=== PATIENT | female | born 2000 | race Two or more races ===

== ENCOUNTER 2018-01-23 19:06 | Observation (INO) ==
--- NOTE | 2018-01-23 19:34 | ED ---
HPI General Chief Complaint: Fall Stated Complaint: fall/hit head/vomitting Time Seen by Provider: 01/23/18 19:21 History of Present Illness HPI Narrative: Patient is a 17-year-old female who presents with complaints of head injury status post fall from a skateboard onto asphalt. Patient states that injury occurred approximately 2 hrs [employer]. Patient was evaluated by EMS at the scene and cleared. Patient and her boyfriend were advised that if she were to experience nausea, vomiting, lethargy or visual disturbances to be evaluated the emergency room. She has had 2 episodes of vomiting prior to arrival. While in the emergency room and during my evaluation she has had another episode of vomiting. Boyfriend states that she is much more sleepy and lethargic than normal. Patient denies any visual disturbances. She denies any other injuries. She denies loss of consciousness after the incident. Related Data Home Medications Medication Instructions Recorded Confirmed methimazole 20 mg PO DAILY 01/23/18 01/23/18 Allergies Allergy/AdvReac Type Severity Reaction Status Date / Time No Known Allergies Allergy Uncoded 10/17/16 11:42 Review of Systems ROS: all other systems reviewed are negative [facility] Social History Social History Substance History: No History of Abuse Second Hand Smoke Exposure: No Smoking Status: Never smoker How Often Do You Have a Drink Containing Alcohol: Never Recent Travel in [facility] within the Last 8 Weeks: No Recent Out of Country Travel within the Last 8 Weeks: No Immunization History Tetanus Immunization: Unsure Exam Narrative Exam Narrative: GENERAL: drowsy but arousable and answering questions. SKIN: Focused skin assessment warm/dry. Abrasion on top/posteriors aspect of scalp, approx half dollar size in diameter. No laceration noted. HEAD: Atraumatic. Normocephalic.See skin assessment. No pike sign EYES: Pupils equal and round. No scleral icterus. No injection or drainage. ENT: No nasal bleeding or discharge. Mucous membranes pink and moist. No hemotympanum. NECK: Trachea midline. No JVD. CARDIOVASCULAR: Regular rate and rhythm. No murmur appreciated. RESPIRATORY: No accessory muscle use. Clear to auscultation. Breath sounds equal bilaterally. GASTROINTESTINAL: Abdomen soft, non-tender, nondistended. vomiting. MUSCULOSKELETAL: No obvious deformities. No clubbing. No cyanosis. No edema. NEUROLOGICAL: Drowsy but arouseable and answers questions. No obvious cranial nerve deficits. Motor grossly within normal limits. Normal speech. PSYCHIATRIC: Appropriate mood and affect; insight and judgment normal. Course Initial Documented Vital Signs Temperature 97.6 F 01/23/18 19:10 Pulse Rate 87 01/23/18 19:10 Respiratory Rate 16 01/23/18 19:10 Blood Pressure 126/64 01/23/18 19:10 Pulse Oximetry 100 01/23/18 19:10 Last Documented Vital Signs Temperature 97.6 F 01/23/18 19:10 Pulse Rate 84 01/23/18 21:45 Respiratory Rate 14 01/23/18 21:45 Blood Pressure 120/58 L 01/23/18 21:45 Pulse Oximetry 100 01/23/18 21:45 Clinical Decision Support [place] CT Head Injury GCS < 15 at 2 hours post-injury: Yes Suspected open or depreseed skull fracture: No Any sign of basilar skull fracture?: No 2 or more episodes of vomiting: Yes Age greater than or equal to 65 years: No Medical Decision Making MDM Narrative Medical decision making narrative: Patient is a 17-year-old female who presents after a skateboarding incident. She fell hitting her head approximately 2 hours prior to arrival. She was evaluated by EMS at the scene after her boyfriend called 911 and was cleared. She and the boyfriend were advised that if she were to experience any nausea, vomiting, visual disturbances, or dizziness to be seen in the emergency room. She had 2 episodes of vomiting propping her to come to the emergency room. Upon my evaluation she is vomiting again. Boyfriend reports that she is also more lethargic than normal. Upon exam she does have an abrasion on the top posterior aspect of her skull approximately half dollar in size. No laceration noted. She is lethargic on my exam but does awaken and answer questions appropriately. All extremities. No complaints of visual disturbances. Zofran, Compazine and Benadryl given for nausea and headache per Dr. Joseph's order. CT brain ordered and pending. Patient care assumed by me from Jade YANG at the end of her shift at 2100. I had already seen the patient and she appeared well and my concern was for concussion. CT scan of the head does show a occipital skull fracture with extension into the base of the skull. C-spine was added and is negative. Patient is feeling more comfortable after medications ordered as above. She has no bleeding no mass-effect and no contusion seen on the CAT scan. She is neurologically intact. Patient was discussed with Dr. Musa as well as Dr. Chavis and will patient will be admitted to the floor for neurosurgical consult. Medical Screen Exam Complete: Yes Emergency Medical Condition: Yes Differential Diagnosis Differential Diagnosis: skull fracture/intracranial bleed/concussion Lab Data Result diagrams: 01/23/18 22:00 01/23/18 22:00 POC Results POC Urine Results Negative Lab Results 01/23/18 01/23/18 Range/Units 22:00 22:00 WBC 14.5 H (4.0-11.0) th/mm3 RBC 4.63 (4.00-5.30) mil/mm3 Hgb 12.6 (11.6-15.3) gm/dL Hct 37.5 (35.0-46.0) % MCV 81.1 (80.0-100.0) fL MCH 27.2 (27.0-34.0) pg MCHC 33.5 (32.0-36.0) % RDW 13.2 (11.6-17.2) % Plt Count 251 (150-450) th/mm3 MPV 8.2 (7.0-11.0) fL Neut % (Auto) 90.6 H (16.0-70.0) % Lymph % (Auto) 4.6 L (9.0-44.0) % Appling % (Auto) 4.7 (0.0-8.0) % Eos % (Auto) 0.0 (0.0-4.0) % Baso % (Auto) 0.1 (0.0-2.0) % Neut # (Auto) 13.1 H (1.8-7.7) th/mm3 Lymph # (Auto) 0.7 L (1.0-4.8) th/mm3 App[place] # (Auto) 0.7 (0.0-0.9) th/mm3 Eos # (Auto) 0.0 (0.0-0.4) th/mm3 Baso # (Auto) 0.0 (0.0-0.2) th/mm3 WBC Differential . Differential Comment Auto diff final Sodium 136 (136-145) meq/L Potassium 3.6 (3.5-5.1) meq/L Chloride 105 (98-107) meq/L Carbon Dioxide 25.6 (21.0-32.0) meq/L Anion Gap 5 (5-15) meq/L BUN 10 (7-18) mg/dL Creatinine 0.68 (0.50-1.00) mg/dL Estimated GFR Greater than 89 (>89) mL/min Random Glucose 120 H (74-106) mg/dL Calcium 8.8 (8.5-10.1) mg/dL Total Bilirubin 0.4 (0.2-1.0) mg/dL AST 19 (16-38) U/L ALT 21 (9-42) U/L Alkaline Phosphatase 63 (45-117) U/L Total Protein 7.7 (6.4-8.2) g/dL Albumin 4.2 (3.4-5.0) g/dL Imaging Data Radiologist's impression: Head CT 01/23/18 19:27 CONCLUSION: 1. There is a nondisplaced fracture of the left occipital bone extending into left parietal bone with overlying scalp swelling. No acute intracranial hemorrhage, mass effect or shift. . Cervical Spine CT 01/23/18 21:42 CONCLUSION: 1. Cervical spine is intact. 2. There is a nondisplaced fracture of the left occipital bone. 3. Enlarged thyroid. Please correlate clinically and if felt indicated, with outpatient thyroid ultrasound. Chest X-Ray 01/23/18 21:43 CONCLUSION: No evidence of acute cardiopulmonary disease. Discharge Plan Discharge Disposition Patient Disposition: 01 Discharge Home Discharge Order Discharge Orders: ED Use Only Admit Order (Routine); Ordered 01/23/18 Ordered By: Dmitri Joseph Discharge Details Diagnosis: Concussion without loss of consciousness Physicians Team ED Provider: Dmitri Joseph ED Midlevel Provider: Jade Diaz Primary Care Provider: UNKNOWN, Rxs /Orders / Referrals /Forms Prescriptions: No Action methimazole 10 mg Tablet 20 mg PO DAILY RF: 0 Status ED Status: Admitted Patient
--- NOTE | 2018-01-23 20:05 | ED ---
HPI General Chief complaint: Fall Stated complaint: fall/hit head/vomitting Time Seen by Provider: 01/23/18 19:21 History of Present Illness HPI narrative: This note was to viola Hansen's note, please see her note from this date as well which i have also documented on. Related Data Home Medications Medication Instructions Recorded Confirmed methimazole 20 mg PO DAILY 01/23/18 01/23/18 Previous Rx's Medication Instructions Recorded sennosides-docusate sodium [Senna 1 tab PO BID #20 tab 01/24/18 Plus] Allergies Allergy/AdvReac Type Severity Reaction Status Date / Time No Known Allergies Allergy Uncoded 10/17/16 11:42 [facility] Social History Social History Substance History: No History of Abuse Second Hand Smoke Exposure: No Smoking Status: Never smoker How Often Do You Have a Drink Containing Alcohol: Never Recent Travel in [facility] within the Last 8 Weeks: No Recent Out of Country Travel within the Last 8 Weeks: No Immunization History Tetanus Immunization: Unsure Course Initial Documented Vital Signs Temperature 97.6 F 01/23/18 19:10 Pulse Rate 87 01/23/18 19:10 Respiratory Rate 16 01/23/18 19:10 Blood Pressure 126/64 01/23/18 19:10 Pulse Oximetry 100 01/23/18 19:10 Last Documented Vital Signs Temperature 99.2 F 01/24/18 12:57 Pulse Rate 100 H 01/24/18 12:57 Respiratory Rate 18 01/24/18 12:57 Blood Pressure 99/55 L 01/24/18 12:57 Pulse Oximetry 100 01/24/18 12:57 Medical Decision Making BERONICA Attestation BERONICA supervised visit: Yes MDM Narrative Medical Screen Exam Complete: Yes Emergency Medical Condition: Yes Lab Data Result diagrams: 01/24/18 10:16 01/23/18 22:00 POC Results POC Urine Results Negative Lab Results 01/23/18 01/23/18 01/24/18 Range/Units 22:00 22:00 10:16 WBC 14.5 H 11.0 (4.0-11.0) th/mm3 RBC 4.63 4.66 (4.00-5.30) mil/mm3 Hgb 12.6 12.8 (11.6-15.3) gm/dL Hct 37.5 38.8 (35.0-46.0) % MCV 81.1 83.3 (80.0-100.0) fL MCH 27.2 27.6 (27.0-34.0) pg MCHC 33.5 33.1 (32.0-36.0) % RDW 13.2 13.5 (11.6-17.2) % Plt Count 251 248 (150-450) th/mm3 MPV 8.2 8.3 (7.0-11.0) fL Neut % (Auto) 90.6 H (16.0-70.0) % Lymph % (Auto) 4.6 L (9.0-44.0) % Daniels % (Auto) 4.7 (0.0-8.0) % Eos % (Auto) 0.0 (0.0-4.0) % Baso % (Auto) 0.1 (0.0-2.0) % Neut # (Auto) 13.1 H (1.8-7.7) th/mm3 Lymph # (Auto) 0.7 L (1.0-4.8) th/mm3 Daniels # (Auto) 0.7 (0.0-0.9) th/mm3 Eos # (Auto) 0.0 (0.0-0.4) th/mm3 Baso # (Auto) 0.0 (0.0-0.2) th/mm3 WBC Differential . Differential Comment Auto diff final Sodium 136 (136-145) meq/L Potassium 3.6 (3.5-5.1) meq/L Chloride 105 (98-107) meq/L Carbon Dioxide 25.6 (21.0-32.0) meq/L Anion Gap 5 (5-15) meq/L BUN 10 (7-18) mg/dL Creatinine 0.68 (0.50-1.00) mg/dL Estimated GFR Greater than 89 (>89) mL/min Random Glucose 120 H (74-106) mg/dL Calcium 8.8 (8.5-10.1) mg/dL Total Bilirubin 0.4 (0.2-1.0) mg/dL AST 19 (16-38) U/L ALT 21 (9-42) U/L Alkaline Phosphatase 63 (45-117) U/L Total Protein 7.7 (6.4-8.2) g/dL Albumin 4.2 (3.4-5.0) g/dL Imaging Data Radiologist's impression: Head CT 01/23/18 19:27 CONCLUSION: 1. There is a nondisplaced fracture of the left occipital bone extending into left parietal bone with overlying scalp swelling. No acute intracranial hemorrhage, mass effect or shift. . Cervical Spine CT 01/23/18 21:42 CONCLUSION: 1. Cervical spine is intact. 2. There is a nondisplaced fracture of the left occipital bone. 3. Enlarged thyroid. Please correlate clinically and if felt indicated, with outpatient thyroid ultrasound. Chest X-Ray 01/23/18 21:43 CONCLUSION: No evidence of acute cardiopulmonary disease. Discharge Plan Discharge Disposition Patient Disposition: ED Admit(ED Internal Use Only) Discharge Condition Condition: Stable Discharge Order Discharge Orders: Discharge Order (Routine); Ordered 01/24/18 Ordered By: Vasile Collins ED Use Only Admit Order (Routine); Ordered 01/23/18 Ordered By: Dmitri Joseph Discharge Details Diagnosis: Concussion without loss of consciousness, Basal skull fracture Physicians Team ED Provider: Dmitri Joseph ED Midlevel Provider: Jade Diaz Primary Care Provider: UNKNOWN, Attending Provider: Ele Liriano Other Providers: Alexander Musa ; Jennifer Gaitan ; Kirby Jc ; Julio Mon ; [employer] ; Augusto Dorman ; Adelaida Guzmán ; Owen Herrera ; Hayley Gagnon ; Vasile Collins ; Ele Liriano ; Alvarez Dodson Status ED Status: Left Department Discharge Information Discharge Date/Time: 01/24/18 00:17
--- NOTE | 2018-01-23 21:30 | CT ---
EXAM DATE: 01/23/2018 9:22 PM EST AGE/SEX: 17 years / Female INDICATIONS: Trauma; head injury. Fell off back of skate board and hit head. Vomited twice. CLINICAL DATA: This is the patient's initial encounter. Patient reports that signs and symptoms have been present for 1 day and indicates a pain score of 10/10. MEDICAL/SURGICAL HISTORY: Hypothyroidism. None. RADIATION DOSE: 35.29 CTDI (mGy) COMPARISON: No prior exams available for comparison. TECHNIQUE: CT of the head without contrast. Using automated exposure control and adjustment of the mA and/or kV according to patient size, radiation dose was kept as low as reasonably achievable to ob tain optimal diagnostic quality images. DICOM format image data is available electronically for revi ew and comparison. FINDINGS: Cerebrum: The ventricles are normal for age. No evidence of midline shift, mass lesion, hemorrhage or acute infarction. No extraaxial fluid collections are seen. Posterior Fossa: The cerebellum and brainstem are intact. The 4th ventricle is midline. The cerebe llopontine angle is unremarkable. Extracranial: The visualized portion of the orbits is intact. Skull: There is a nondisplaced fracture of the left occipital bone. CONCLUSION: 1. There is a nondisplaced fracture of the left occipital bone extending into left parietal bone wit h overlying scalp swelling. No acute intracranial hemorrhage, mass effect or shift. . Electronically signed by: Arcenio Richards MD 01/23/2018 9:29 PM EST
[2018-01-23 22:05] LABS: Baso % (Auto) 0.1 % (0.0-2.0); Hematocrit 37.5 % (35.0-46.0); Hemoglobin 12.6 gm/dL (11.6-15.3); Lymph # (Auto) 0.7 th/mm3 (1.0-4.8); Lymph % (Auto) 4.6 % (9.0-44.0); Mean Corpuscular HGB Conc 33.5 % (32.0-36.0); Mean Corpuscular Hemoglobin 27.2 pg (27.0-34.0); Mean Corpuscular Volume 81.1 fL (80.0-100.0); Mean Platelet Volume 8.2 fL (7.0-11.0); Mono # (Auto) 0.7 th/mm3 (0.0-0.9); Mono % (Auto) 4.7 % (0.0-8.0); Neut # (Auto) 13.1 th/mm3 (1.8-7.7); Neut % (Auto) 90.6 % (16.0-70.0); Platelet Count 251 th/mm3 (150-450); Red Blood Count 4.63 mil/mm3 (4.00-5.30); Red Cell Distribution Width 13.2 % (11.6-17.2); White Blood Count 14.5 th/mm3 (4.0-11.0)
--- NOTE | 2018-01-23 22:10 | XR ---
EXAM DATE: 01/23/2018 10:06 PM EST AGE/SEX: 17 years / Female INDICATIONS: Patient fell today and has skull fracture. CLINICAL DATA: This is the patient's initial encounter. Patient reports that signs and symptoms have been present for 1 day and indicates a pain score of 7/10. MEDICAL/SURGICAL HISTORY: None. None. COMPARISON: No prior exams available for comparison. FINDINGS: A single AP view of the chest demonstrates the lungs to be symmetrically aerated without evidence of mass, infiltrate or effusion. The cardiomediastinal contours are unremarkable. Osseous structures a re intact. CONCLUSION: No evidence of acute cardiopulmonary disease. Electronically signed by: Sen Rosario MD 01/23/2018 10:08 PM EST
[2018-01-23 22:21] LABS: Albumin 4.2 g/dL (3.4-5.0); Anion Gap 5 meq/L (5-15); Aspartate Aminotransferase 19 U/L (16-38); Blood Urea Nitrogen 10 mg/dL (7-18); Calcium 8.8 mg/dL (8.5-10.1); Carbon Dioxide 25.6 meq/L (21.0-32.0); Chloride 105 meq/L (98-107); Glomerular Filtration Rate Greater Than 89 mL/min (>89); Glucose,Random 120 mg/dL (74-106); Potassium 3.6 meq/L (3.5-5.1); Sodium 136 meq/L (136-145)
[2018-01-23 22:22] LABS: Alanine Aminotransferase 21 U/L (9-42)
[2018-01-23 22:24] LABS: Alkaline Phosphatase 63 U/L (45-117); Total Protein 7.7 g/dL (6.4-8.2)
--- NOTE | 2018-01-23 22:40 | CT ---
EXAM DATE: 01/23/2018 10:28 PM EST AGE/SEX: 17 years / Female INDICATIONS: Fall off skateboard. Hit back of head. CLINICAL DATA: This is the patient's initial encounter. Patient reports that signs and symptoms have been present for 1 day and indicates a pain score of 9/10. MEDICAL/SURGICAL HISTORY: None. None. RADIATION DOSE: 18.36 CTDI (mGy) COMPARISON: [facility] [place]/23/[place]. . TECHNIQUE: Contiguous axial images were obtained using helical multirow detector technique. The vol umetric data was post-processed with multiplanar reconstruction in oblique axial, sagittal, and coron al planes. Using automated exposure control and adjustment of the mA and/or kV according to patient s ize, radiation dose was kept as low as reasonably achievable to obtain optimal diagnostic quality mitch ges. DICOM format image data is available electronically for review and comparison. FINDINGS: Vertebrae: Normal vertebral body height. Alignment: Normal. No subluxation. C2-3: The bony spinal canal is normal in size. No evidence of disc bulge or herniation. The neural foramina are bilaterally patent. C3-4: The bony spinal canal is normal in size. No evidence of disc bulge or herniation. The neural foramina are bilaterally patent. C4-5: The bony spinal canal is normal in size. No evidence of disc bulge or herniation. The neural foramina are bilaterally patent. C5-6: The bony spinal canal is normal in size. No evidence of disc bulge or herniation. The neural foramina are bilaterally patent. C6-7: The bony spinal canal is normal in size. No evidence of disc bulge or herniation. The neural foramina are bilaterally patent. C7-T1: The bony spinal canal is normal in size. No evidence of disc bulge or herniation. The neura l foramina are bilaterally patent. Thyroid appears diffusely enlarged. Nondisplaced fracture of the left occiput again noted. The occipital condyles are intact. CONCLUSION: 1. Cervical spine is intact. 2. There is a nondisplaced fracture of the left occipital bone. 3. Enlarged thyroid. Please correlate clinically and if felt indicated, with outpatient thyroid ultr asound. Electronically signed by: Sen Rosario MD 01/23/2018 10:39 PM EST
[2018-01-23] MEDS ORDERED: Sod Chloride 0.9% Inj 1,000 ML IV.SIG SCH (23:15)
[2018-01-24 02:26] VITALS: RESP 18
--- NOTE | 2018-01-24 07:18 | MH ---
cc: Ele Liriano MD DATE OF ADMISSION: 01/23/2018 ADMITTING PHYSICIAN: Dr. Ele Liriano, trauma. ADMITTING DIAGNOSIS: Occipital and parietal skull fracture. HISTORY OF PRESENT ILLNESS: This 17-year-old female was skateboarding this evening, fell and sustained contusion to the left side of the head with some bruising. Initially went home and was told that she started having more symptoms, nausea, vomiting and such to return. The patient apparently had nausea and vomiting several times including in the ER and hence the admission. PAST MEDICAL/SURGICAL HISTORY: Negative. MEDICATIONS: Negative. ALLERGIES: NEGATIVE. PHYSICAL EXAMINATION: GENERAL: Reveals a 17-year-old female. HEENT: Normocephalic. No trauma to the face; however, there is trauma to the head consisting of some bruising over the left parietotemporal area and back of the scalp and abrasions. No lacerations. Pupils are equal and reactive. Extraocular muscles intact. NECK: Supple. Bilateral carotid pulses. No bruits. No signs of trauma to the neck. CHEST: Bilateral breath sounds. HEART: Regular rate and rhythm. ABDOMEN: Soft, active bowel sounds. No rebound, no guarding, no masses. EXTREMITIES: Within normal limits with good peripheral distal pulses. No signs of deficit. No deformities. IMPRESSION: The patient underwent workup and was found to have parieto-occipital skull fracture and signs and symptoms of brain concussion including nausea, vomiting. The patient is now admitted for observation. Neurosurgery has been consulted. The patient will undergo repeat CAT scan of the brain tomorrow. Ele Liriano MD SJ/sv , 05:33 AM , 05:39 AM
[2018-01-24 10:30] LABS: Hematocrit 38.8 % (35.0-46.0); Hemoglobin 12.8 gm/dL (11.6-15.3); Mean Corpuscular HGB Conc 33.1 % (32.0-36.0); Mean Corpuscular Hemoglobin 27.6 pg (27.0-34.0); Mean Corpuscular Volume 83.3 fL (80.0-100.0); Mean Platelet Volume 8.3 fL (7.0-11.0); Platelet Count 248 th/mm3 (150-450); Red Blood Count 4.66 mil/mm3 (4.00-5.30); Red Cell Distribution Width 13.5 % (11.6-17.2)
--- NOTE | 2018-01-24 12:01 | P.NPEVAL ---
Patient History - Record/History Review Reason for Referral: The patient is a 17 year old presumably right handed woman status post traumatic brain injury secondary to a fall from a skateboard sustained on 2017. The patient was evaluated by EVAC on the scene and cleared. She then presented to the ED with nausea and vomiting. Head CT showed non displaced left occipital bone fracture. She is referred for baseline neurobehavioral status examination per trauma protocol to assess cognitive, behavioral and emotional aspects of the injury and to provide treatment recommendations. PMFSH - History History Provided By: Patient - Medical History Medical History: Medical History (Last Reviewed 01/23/18 @ 19:18 by Maggi Segal) Hypothyroidism - Surgical History Surgical History: Surgical History (Last Reviewed 01/23/18 @ 19:18 by Maggi Segal) No history of previous surgery - Tobacco History Second Hand Smoke Exposure: No Smoking Status: Never smoker - Alcohol History How Often Do You Have a Drink Containing Alcohol: Never - Substance Use History Substance History: No History of Abuse - Travel History Recent Travel in the [place] Within the Last 8 Weeks: No Recent Travel Out of the Country Within the Last 8 Weeks: No - Immunization History Tetanus Immunization: <5 Years Hx Influenza Vaccine This Season: Yes Medications Active Medications Acetaminophen (Ofirmev Inj) 1,000 mg in 100 mls @ 400 mls/hr IV.SIG Q6H PRN PRN Reason: PAIN SCALE 1 TO 10 Sodium Chloride (Ns Inj) 1,000 mls @ 60 mls/hr IV.SIG .[id number] [facility] Last Admin: 01/24/18 00:20 Dose: 60 mls/hr Methimazole (Tapazole) 20 mg PO DAILY [facility] Last Admin: 01/24/18 08:53 Dose: 20 mg Ondansetron HCl (Zofran Inj) 4 mg IV.PUSH Q6H PRN PRN Reason: FOR NAUSEA Last Admin: 01/24/18 00:20 Dose: 4 mg Oxycodone/Acetaminophen (Percocet 5/325 Mg) 1 tab PO Q4H PRN PRN Reason: PAIN SCALE 6 TO 10 Pantoprazole Sodium (Protonix) 40 mg PO DAILY [facility] Last Admin: 01/24/18 08:53 Dose: 40 mg Sodium Chloride (Ns Flush) 2 ml IV.FLUSH UNSCH PRN PRN Reason: FLUSH AFTER USING IV ACCESS Mental Status Assessment - Mental Status Orientation: oriented to: Self, Place, Time, Situation Mental Status: WFL: Thought processing, Language/interactions, Attention, Learning/memory, Problem-solving Absent: Hallucinations, Delusions Adjustment/Coping Assessment - Observation In terms of emotional functioning, the patient demonstrated normal adjustment. This patient demonstrated no signs of agitation, impulsivity or disinhibition, nor was there remarkable evidence of a formal thought disorder or psychosis. There was no evidence of depression or anxiety. Thought content was free from suicidal, homicidal or paranoid ideation, and thought processes were logical and goal-directed. The patients mood was euthymic, and her affect was stable and appropriate. The patient appears to possess adequate insight and awareness into their situation and within the limits of this brief evaluation, adequate judgment. Behavior - Behavior Treatment Engagement: Average - Observation Behaviorally, the patient demonstrated no signs of agitation, impulsivity or disinhibition. There was no remarkable evidence of a formal thought disorder or psychosis. 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 [facility] Level: Level VIII Maximizing Acute Care Outcome: It is recommended that the patient be monitored for emergent behavioral impulsivity as the medical condition evolves. This patients neuropathological challenges may limit rehabilitation potential going forward, and these challenges will require specialized therapeutic skills to maximize outcome. At this point in the recovery process, the patient does have cognitive capacity as the patient is able to understand a situation and its likely consequences, and she is able to manipulate information rationally. Cognitive capacity will be assessed throughout the recovery process. - Discharge Planning Anticipated Problems: Ongoing areas of concern will include behavioral impulsivity, lack of insight and judgment, which is expected to improve with time and treatment. Treatment Plan: This clinician will continue to follow with you throughout the course of this patients acute care treatment, and I will be available to meet with the patient s family/support system to facilitate their understanding and the ongoing care of their family member. The goals of neuropsychological intervention shall be both educational and supportive to the family/support system as is deemed clinically appropriate. Additionally, this patient will be referred to the [facility] on discharge. Thank you for the opportunity to assist in this patients care. Alvarez Dodson, Ph.D., ABPP Board Certified in Clinical Neuropsychology [facility] Board of Professional Psychology [place] Licensed Psychologist #[id number]
--- NOTE | 2018-01-24 12:03 | P.DS ---
Date of admission: 01/24/18 06:46 Primary care physician: UNKNOWN Brief History from admission: S/P fall DS: Diagnosis - Discharge Diagnosis (1) Concussion without loss of consciousness Status: Acute (2) Basal skull fracture Status: Acute (3) Mild neurocognitive disorder due to traumatic brain injury Status: Acute DS: Medications - Discharge Medications Prescriptions: sennosides-docusate sodium [Senna Plus] 1 tab PO BID #20 tab DS: Summary Hospital Course: [place]: Un-helmeted skateboarder fell striking her head on the asphalt. No LOC. 2 episodes of vomiting at home with lethargy. INJURIES: Concussion Occipital skull fx extending to skull base PMHx: Hyperthyroidism Concussion, Occipital skull fx extending to skull base Neurosurgery consulted, follow-up as outpatient Stable neuro checks Pain control No further N/V Avoid second head injury Postconcussive education Follow-up with concussion clinic Follow-up with PCP in 1 week Plan of care discussed with patient at bedside. Collaborating Trauma surgeon agrees with plan. Case management consulted to assist with discharge planning. Patient is clear from Trauma surgery standpoint to safely DC home. D/W patient's mother via telephone and all questions were answered. Patient's mother requested no narcotics be prescribed to patient at DC. Radiology imaging CD ordered. - Time Spent with Patient Total time spent providing and/or coordinating discharge services: Greater than 30 minutes - Quality: VTE Deep Vein Thrombosis/Pulmonary Embolism Present on Admission: No Exam Vital signs: Vital Signs 01/23/18 19:10 01/23/18 21:45 01/24/18 00:18 Temperature 97.6 F Pulse Rate 87 84 91 H Respiratory Rate 16 14 Blood Pressure 126/64 120/58 L Pulse Oximetry 100 100 01/24/18 02:26 01/24/18 04:02 01/24/18 04:12 Temperature 98.8 F Pulse Rate 88 105 H Respiratory Rate 18 18 Blood Pressure 116/56 L Pulse Oximetry 100 01/24/18 08:00 01/24/18 08:54 01/24/18 09:00 Temperature 99.6 F Pulse Rate 99 H 96 H Respiratory Rate 18 Blood Pressure 112/59 L Pulse Oximetry 99 99 01/24/18 09:03 Temperature Pulse Rate Respiratory Rate Blood Pressure Pulse Oximetry 98 Intake & Output 01/23/18 01/24/18 01/24/18 18:59 06:59 18:59 Intake Total 480 / 480 Balance 480 / 480 Weight 57.2 kg Intake: Oral 480 / 480 Other: # Voids 1 Date of Last Bowel Movement 01/23/18 Weight On Admission 56.69 kg Narrative: GENERAL: 17 year old well-nourished, well developed female lying in bed in NAD. SKIN: Warm and dry. HEAD: Normocephalic. EYES: Pupils equal and round. No scleral icterus. ENT: No nasal bleeding or discharge. Mucous membranes pink and moist. CARDIOVASCULAR: Regular rate and rhythm. RESPIRATORY: No accessory muscle use. Lungs clear to auscultation bilaterally. GASTROINTESTINAL: Abdomen soft, non-tender, nondistended. + BS. MUSCULOSKELETAL: Extremities without cyanosis, or edema. MAEW, + perfused NEUROLOGICAL: Awake and alert. Normal speech. Results Procedures completed during hospitalization: . Labs on day of discharge: Labs from last 24 hours 01/24/18 01/23/18 01/23/18 10:16 22:00 22:00 WBC 11.0 14.5 H RBC 4.66 4.63 Hgb 12.8 12.6 Hct 38.8 37.5 MCV 83.3 81.1 MCH 27.6 27.2 MCHC 33.1 33.5 RDW 13.5 13.2 Plt Count 248 251 MPV 8.3 8.2 Neut % (Auto) 90.6 H Lymph % (Auto) 4.6 L [place] % (Auto) 4.7 Eos % (Auto) 0.0 Baso % (Auto) 0.1 Neut # (Auto) 13.1 H Lymph # (Auto) 0.7 L [place] # (Auto) 0.7 Eos # (Auto) 0.0 Baso # (Auto) 0.0 WBC Differential . Differential Comment Auto diff final Sodium 136 Potassium 3.6 Chloride 105 Carbon Dioxide 25.6 Anion Gap 5 BUN 10 Creatinine 0.68 Estimated GFR Greater than 89 Random Glucose 120 H Calcium 8.8 Total Bilirubin 0.4 AST 19 ALT 21 Alkaline Phosphatase 63 Total Protein 7.7 Albumin 4.2 - Impressions ITS Impressions Head CT 01/23/18 19:27 CONCLUSION: 1. There is a nondisplaced fracture of the left occipital bone extending into left parietal bone with overlying scalp swelling. No acute intracranial hemorrhage, mass effect or shift. . Cervical Spine CT 01/23/18 21:42 CONCLUSION: 1. Cervical spine is intact. 2. There is a nondisplaced fracture of the left occipital bone. 3. Enlarged thyroid. Please correlate clinically and if felt indicated, with outpatient thyroid ultrasound. Chest X-Ray 01/23/18 21:43 CONCLUSION: No evidence of acute cardiopulmonary disease. Discharge Plan - Discharge Disposition Patient Disposition: 01 Discharge Home - Discharge Condition Condition: Stable - Discharge Order Discharge Orders: Discharge Order (Routine); Ordered 01/24/18 Ordered By: Vasile Collins - Physicians Team Primary Care Provider: UNKNOWN, Attending Provider: Ele Liriano Other Providers: Alexander Musa MD ; Jennifer Gaitan M.D. ; Kirby Jc MD ; Julio Mon MD ; [employer] ; Augusto Dorman MD ; Adelaida Guzmán ARNP ; Owen Herrera MD ; Hayley Gagnon MD ; Vasile Collins ARNP ; Ele Liriano MD ; Alvarez Dodson, PhD
[2018-01-24 12:58] VITALS: BP 99/55; PULSE 100; TEMP 99.2; O2SAT 100
--- NOTE | 2018-01-24 15:17 | P.PNNS ---
Subjective Interval history: c/o of headaches Physical Exam Vital signs: Vital Signs 01/23/18 19:10 01/23/18 21:45 01/24/18 00:18 Temperature 97.6 F Pulse Rate 87 84 91 H Respiratory Rate 16 14 Blood Pressure 126/64 120/58 L Pulse Oximetry 100 100 01/24/18 02:26 01/24/18 04:02 01/24/18 04:12 Temperature 98.8 F Pulse Rate 88 105 H Respiratory Rate 18 18 Blood Pressure 116/56 L Pulse Oximetry 100 01/24/18 08:00 01/24/18 08:54 01/24/18 09:00 Temperature 99.6 F Pulse Rate 99 H 96 H Respiratory Rate 18 Blood Pressure 112/59 L Pulse Oximetry 99 99 01/24/18 09:03 01/24/18 12:57 Temperature 99.2 F Pulse Rate 100 H Respiratory Rate 18 Blood Pressure 99/55 L Pulse Oximetry 98 100 Intake & Output 01/23/18 01/24/18 01/24/18 18:59 06:59 18:59 Intake Total 480 / 480 Balance 480 / 480 Weight 57.2 kg Intake: Oral 480 / 480 Other: # Voids 1 Date of Last Bowel Movement 01/23/18 Weight On Admission 56.69 kg Narrative: GENERAL: NAD SKIN: Warm and dry. HEAD: Normocephalic. EYES: Pupils equal and round. No scleral icterus. No injection or drainage. ENT: No nasal bleeding or discharge. Mucous membranes pink and moist. NECK: Trachea midline. No JVD. MUSCULOSKELETAL: Extremities without clubbing, cyanosis, or edema. No obvious deformities. NEUROLOGICAL: Awake and alert. No obvious cranial nerve deficits. Motor grossly within normal limits. Five out of 5 muscle strength in the arms and legs. Normal speech. Assessment and Plan - Plan 17 y/o female closed head injury, basal skull fracture nonoperative management pt clear for dc home from NRS standpoint
--- NOTE | 2018-01-25 17:43 | ECG ---
Date Performed: 01/23/2018 Time Performed: 21:50:57 PTAGE: 17 years EKG: Sinus rhythm WITH SHORT SC INTERVAL BORDERLINE ECG NO PREVIOUS TRACING DOCTOR: Torres Barreto Interpretating Date/Time 01/25/2018 17:30:19
== END 2018-01-24 17:56 | disposition home or self-care (01) ==
LOC: NEPD 19:06 → INTOOBSV 22:50 → NEDA 22:50 → N06 23:43
PROVIDERS: ADMIT Surgery; ATTEND Surgery